=== PATIENT | male | born 1990 | race American Indian/Alaskan Native ===

== ENCOUNTER 2018-02-13 10:00 | Emergency (ER) | payer SELFPAY ==
--- NOTE | 2018-02-13 10:18 | Emergency Department Report ---
HPI - General Time Seen by Provider: 02/13/18 10:09 - HPI HPI: 27-year-old male presents to the emergency department via EMS after he was found in his car but in some other person's driveway and that person called 911. He was given 2 mg of Narcan without any response. The patient is mostly been sleeping and/or altered the entire time and therefore there has been no history obtained. He has never been before to this facility and is unknown to myself. He is currently a poor historian secondary to his current condition. ED Review of Systems ROS: Stated complaint: AMS Other details as noted in HPI Comment: Unobtainable due to pts medical conditions Physical Exam - Physical Exam Physical Exam: GENERAL: The patient is well-developed well-nourished. HENT: Normocephalic. Atraumatic. Patient has moist mucous membranes. EYES: Pupils equal reactive to light bilaterally. NECK: Supple. Trachea is midline. CHEST/LUNGS: Clear to auscultation. There is no respiratory distress noted. HEART/CARDIOVASCULAR: Regular. There is no tachycardia. There is no murmur. ABDOMEN: Abdomen is soft. Patient has normal bowel sounds. There is no abdominal distention. SKIN: Skin is warm and dry. NEURO: The patient is asleep and unresponsive. He will arouse to painful stimuli but remains nonverbal and will not open his eyes. Positive gag reflex. MUSCULOSKELETAL: There is no tenderness or deformity. There is no evidence of acute injury. ED Medical Decision Making - Lab Data Result diagrams: 02/13/18 10:31 02/13/18 10:31 - EKG Data -: EKG Interpreted by Ne EKG shows normal: sinus rhythm, axis, intervals, QRS complexes, ST-T waves Rate: normal - EKG Data When compared to previous EKG there are: previous EKG unavailable Interpretation: normal EKG - Radiology Data Radiology results: report reviewed CT of the head does not show any acute intracranial process including no ischemia, shift, mass, bleeding or skull fracture. - Medical Decision Making Patient presented at first as altered mental status after being found passed out in the front of a car. In the emergency department, the patient was asleep and unresponsive but was maintaining his airway. CT scan of the head did not show any bleed, shift, mass or any other acute process. Labs were mostly unremarkable except for a urine drug screen positive for methamphetamine and benzodiazepine. There was no evidence of opiate use and the patient did not have any previous response to the Narcan given prior to arrival. The plan was for the patient to be admitted to the hospital for his altered mental status. He was seen by the admitting hospitalist and at that time became awake, alert, and was agitated that he was at the hospital. The patient was seen ambulatory and verbal, able to answer orientation questions appropriately, and then signed out AGAINST MEDICAL ADVICE. Although the AMA was initiated and done by the admitting hospitalist, I spoke briefly with the patient regarding the fact that he had been unresponsive and confused for multiple hours but the patient did not want to give any further insight as to what had occurred, was not concerned about the fact that he had been found unresponsive, and still wanted to leave AGAINST MEDICAL ADVICE. - Differential Diagnosis substance abuse, dysrhythmia, TIA, hypoglycemia Critical Care Time: No Critical care attestation.: If time is entered above; I have spent that time in minutes in the direct care of this critically ill patient, excluding procedure time. ED Disposition Clinical Impression: Substance abuse, Unresponsive episode Disposition: DC-09 OP ADMIT IP TO THIS HOSP Is pt being admited?: Yes Condition: Stable Referrals: PRIMARY CARE, [Primary Care Provider] - 3-5 Days Time of Disposition: 15:00
[2018-02-13 10:57] LABS: INR 0.9 (0.87-1.13); Partial Thromboplastin Time 35.4 Sec. (24.2-36.6)
[2018-02-13 11:04] LABS: Basophils % (Auto) 0.8 % (0.0-1.8); Eosinophils # (Auto) 0.1 K/mm3 (0.0-0.4); Eosinophils % (Auto) 2.3 % (0.0-4.3); Hematocrit 38.4 % (35.5-45.6); Hemoglobin 13.3 gm/dl (11.8-15.2); Lymphocytes # (Auto) 1.9 K/mm3 (1.2-5.4); Lymphocytes % (Auto) 32.4 % (13.4-35.0); Mean Corpuscular HGB Conc 35 % (32-34); Mean Corpuscular Hemoglobin 32 pg (28-32); Mean Corpuscular Volume 91 fl (84-94); Monocytes # (Auto) 0.5 K/mm3 (0.0-0.8); Monocytes % (Auto) 8.7 % (0.0-7.3); Platelet Count 241 K/mm3 (140-440); Red Blood Count 4.22 M/mm3 (3.65-5.03); Red Cell Distribution Width 12.4 % (13.2-15.2)
[2018-02-13 11:06] LABS: Alanine Aminotransferase 20 units/L (7-56); Albumin 4.1 g/dL (3.9-5); BUN/Creatinine Ratio 13; Blood Urea Nitrogen 13 mg/dL (9-20); Calcium 8.9 mg/dL (8.4-10.2); Hemolysis Index 5
[2018-02-13 11:47] LABS: Bacteria,Urine 1+ /HPF (Negative); Bilirubin,Urine NEG (Negative); Blood,Urine MOD (Negative); Color,Urine Yellow (Yellow); Mucus,Urine 1+ /HPF; WBC,Urine < 1.0 /HPF (0.0-6.0)
[2018-02-13 11:49] LABS: Amphetamine Screen,Urine PRESUMPTIVE POSITIVE
[2018-02-13] MEDS ORDERED: NACL 0.9% 1000 ML 1,000 ML IV ONE (11:55)
[2018-02-13 12:11] LABS: Cannabinoid Screen,Urine PRESUMPTIVE NEGATIVE; Cocaine Screen,Urine PRESUMPTIVE NEGATIVE; Methadone Screen,Urine PRESUMPTIVE NEGATIVE; Opiate Screen,Urine PRESUMPTIVE NEGATIVE
[2018-02-13 12:25] LABS: Benzodiazepines Screen,Urine PRESUMPTIVE POSITIVE
--- NOTE | 2018-02-13 12:29 | Cat Scan Report ---
CT HEAD WITHOUT CONTRAST: HISTORY: Altered mental status. TECHNIQUE: Sequential 2.5mm CT images. COMPARISON: none. FINDINGS: Cerebral Parenchyma: Within normal limits. Cerebellum: Within normal limits. Brainstem: Within normal limits. Ventricles: Normal. Sella: Normal. Extra-axial spaces: Normal. Basal Cisterns: Normal. Intracranial Hemorrhage: None. Midline Shift: None. Calvarium: Normal. Sinuses: Normal. Mastoid Air Cells: Normal. Visualized Orbits: Normal. IMPRESSION: Cranial CT scan within normal limits.
--- NOTE | 2018-02-13 13:54 | Consultation ---
Medications and Allergies Allergies Allergy/AdvReac Type Severity Reaction Status Date / Time Unable to Assess Allergy Unverified 02/13/18 10:25 Exam - Constitutional Vitals: Temp Pulse Resp BP Pulse Ox 97.8 F 71 20 127/78 100 02/13/18 10:25 02/13/18 13:30 02/13/18 13:30 02/13/18 13:30 02/13/18 13:30 Results - Labs CBC & Chem 7: 02/13/18 10:31 02/13/18 10:31 Labs: Abnormal lab results 02/13/18 02/13/18 Range/Units 10:31 10:31 MCHC 35 H (32-34) % RDW 12.4 L (13.2-15.2) % Archer % (Auto) 8.7 H (0.0-7.3) % Total Creatine Kinase 523 H (55-170) units/L
[2018-02-13 14:24] VITALS: BP 140/105
[2018-02-13 15:32] LABS: Free T4 (Free Thyroxine) 1.16 ng/dL (0.76-1.46)
== END 2018-02-13 14:39 | disposition admitted as inpatient to this hospital (09) ==
LOC: ED 10:00
DX: R41.82 Altered mental status, unspecified (principal); F19.10 Other psychoactive substance abuse, uncomplicated
CPT/HCPCS: 36415; 70450; 80053; 80307; 81001; 82140; 82550; 84439; 84443; 85025; 85379; 85610; 85730; 93005; 93010; 96360; 99285; G0480; J7030; 80320

== ENCOUNTER 2018-09-02 18:11 | Emergency (ER) | payer OTHER ==
--- NOTE | 2018-09-02 19:12 | Emergency Department Report ---
ED Medical Clearance HPI - General Chief complaint: Medical Clearance Stated complaint: POSS DRUG INGESTION Time Seen by Provider: 09/02/18 18:41 Source: patient, police, EMS Mode of arrival: Stretcher - History of Present Illness Initial comments: 27-year-old male brought into ED by police for evaluation. Patient was arrested, a clear bag of crystals was found in patient's possession. Oficer states he put the bag on the agrcia of the car, at that point patient leaned over and officer states patient put the bag in his mouth and swallowed it. This occurred at approx 17:20. Patient denies swallowing anything. He currently denies headache, chest pain, shortness of breath, abdominal pain, nausea or vomiting. MD Complaint: medical clearance request -: This evening Reason for Medical Clearance: other (possible drug ingestion) Traumatic Symptoms: denies traumatic injury Associated Symptoms: denies: chest pain, shortness of breath, palpitations, confusion, fever/chills, headaches, nausea/vomiting Treatments Prior to Arrival: none Allergies/Adverse reactions: Allergies Allergy/AdvReac Type Severity Reaction Status Date / Time shellfish derived Allergy Hives Verified 09/02/18 19:33 ED Review of Systems ROS: Stated complaint: POSS DRUG INGESTION Other details as noted in HPI Comment: All other systems reviewed and negative Respiratory: denies: shortness of breath Cardiovascular: denies: chest pain, palpitations Gastrointestinal: denies: abdominal pain, vomiting, diarrhea Neurological: denies: headache ED Past Medical Hx - Past Medical History Additional medical history: Unknown - Surgical History Additional Surgical History: Unknown - Social History Smoking Status: Current Some Day Smoker ED Physical Exam - General Limitations: No Limitations General appearance: alert, in no apparent distress - Head Head exam: Present: atraumatic, normocephalic - Eye Eye exam: Present: normal appearance, PERRL, EOMI - ENT ENT exam: Present: mucous membranes moist - Neck Neck exam: Present: normal inspection - Respiratory Respiratory exam: Present: normal lung sounds bilaterally. Absent: respiratory distress - Cardiovascular Cardiovascular Exam: Present: normal rhythm, tachycardia - GI/Abdominal GI/Abdominal exam: Present: soft. Absent: distended, tenderness - Extremities Exam Extremities exam: Present: normal inspection - Neurological Exam Neurological exam: Present: alert, oriented X3 - Psychiatric Psychiatric exam: Present: normal affect, normal mood - Skin Skin exam: Present: warm, dry, intact, normal color ED Course Vital Signs 09/02/18 09/02/18 09/02/18 19:01 19:02 19:11 Temperature 98.8 F Pulse Rate 114 H 119 H 112 H Respiratory 15 12 9 L Rate Blood Pressure 134/80 135/72 O2 Sat by Pulse 100 100 99 Oximetry 09/02/18 09/02/18 19:22 20:00 Temperature Pulse Rate 117 H Respiratory 18 20 Rate Blood Pressure 123/66 O2 Sat by Pulse 98 99 Oximetry - Reevaluation(s) Reevaluation #1: 09/02/18 19:05 Pt denies ingesting anything. He also has no complaints. Will observe and monitor. Reevaluation #2: 09/02/18 20:39 Pt observed here in ED x 2 hrs. Vitals remain stable except for tachycardia. Continues to deny chest or abdominal pain, shortness of breath. Advised pt that I would be ordering labs and obtaining CT to r/o foreign body. Pt refuses. I have explained to pt multiple times the risk of drug ingestion, ela if bag should burst, with unknown amt of drug. Pt continues to deny that he swallowed anything. I explained that if a large amount of drug, including cocaine or meth, enters his bloodstream, it could lead to cardiac arrest and he could . Pt exhibits understanding, states he did not ingest anything. Pt is A&O x 3. Capable of decision-making. Pt is coopertive, he is not altered, mentation is normal, answers questions appropriately. Pt will sign out AMA. Officer at bedside during this conversation. ED Medical Decision Making - Differential Diagnosis drug ingestion ED Disposition Clinical Impression: Medical clearance for incarceration Disposition: DC-07 LEFT AGAINST MED ADVICE Is pt being admited?: No Condition: Stable Additional Instructions: Patient has not been medically cleared. Refusing testing. Referrals: [facility] [Other] - 3-5 Days Forms: AMA Form Time of Disposition: 20:44
[2018-09-02 20:52] VITALS: BP 123/66
== END 2018-09-02 21:00 | disposition left against medical advice (07) ==
LOC: EEVIPCON 18:11 → ED 18:11
DX: T65.91XA Toxic effect of unspecified substance, accidental (unintentional), initial encounter (principal); F17.200 Nicotine dependence, unspecified, uncomplicated; Z91.013 Allergy to seafood; X58.XXXA Exposure to other specified factors, initial encounter
CPT/HCPCS: 99283

== ENCOUNTER 2018-09-02 22:44 | Emergency (ER) | payer OTHER ==
--- NOTE | 2018-09-02 23:35 | Emergency Department Report ---
ED General Adult HPI - General Chief complaint: Medical Clearance Stated complaint: MEDICAL EVALUATION Time Seen by Provider: 09/02/18 23:22 Source: patient, EMS (ems notes not available at time of chart dictation), RN notes reviewed, old records reviewed Mode of arrival: Stretcher Limitations: No Limitations - History of Present Illness Initial comments: This is a 27-year-old gentleman. The patient is brought to the hospital today by local police department, again for medical clearance. Patient was seen earlier on today by one of my colleagues, for reported, allegedly ingestion of a bag of unknown substance. Laboratory studies, observation and CT scan were recommended to the patient, and he refused/declined, and signed out AGAINST MEDICAL ADVICE. He again presents for medical clearance. The patient has no complaints at this time. He denies headache, neck pain, chest pain, abdominal pain, shortness of breath,, systolic, suicidality. He has no complaints at this time The questionable alleged ingestion took place earlier on today, we are not sure what time Severity scale (0 -10): 0 Consistency: other Improves with: other Worsens with: other Associated Symptoms: other - Related Data Allergies Allergy/AdvReac Type Severity Reaction Status Date / Time shellfish derived Allergy Hives Verified 09/02/18 19:33 ED Review of Systems ROS: Stated complaint: MEDICAL EVALUATION Other details as noted in HPI Comment: All other systems reviewed and negative (patient has no medical complaints at this time) ED Past Medical Hx - Past Medical History Previous Medical History?: No Additional medical history: Unknown - Surgical History Past Surgical History?: No Additional Surgical History: Unknown - Social History Smoking Status: Current Every Day Smoker Substance Use Type: Methamphetamines ED Physical Exam - General Limitations: No Limitations General appearance: alert, in no apparent distress - Head Head exam: Present: atraumatic, normocephalic - Eye Eye exam: Present: normal appearance, EOMI - ENT ENT exam: Present: normal exam, normal orophraynx, mucous membranes moist, normal external ear exam - Neck Neck exam: Present: normal inspection, full ROM. Absent: tenderness, meningismus - Respiratory Respiratory exam: Present: normal lung sounds bilaterally. Absent: respiratory distress - Cardiovascular Cardiovascular Exam: Present: normal rhythm, tachycardia, normal heart sounds. Absent: systolic murmur, diastolic murmur, rubs, gallop - GI/Abdominal GI/Abdominal exam: Present: soft. Absent: distended, tenderness, guarding, rebound, rigid, pulsatile mass - Rectal Rectal exam: Present: deferred - Extremities Exam Extremities exam: Present: normal inspection, full ROM, other (2+ pulses noted in the bilateral upper, lower extremities. Compartments soft. No long bony tenderness. The pelvis is stable.). Absent: pedal edema, joint swelling, calf tenderness - Back Exam Back exam: Present: normal inspection, full ROM. Absent: tenderness, CVA tenderness (R), paraspinal tenderness - Neurological Exam Neurological exam: Present: alert, oriented X3, other (Extraocular movements intact. Tongue midline. No facial droop. Facial sensation intact to light touch in the V1, V2, V3 distribution bilaterally. 5 and 5 strength in 4 extremities.. Sensation is intact to light touch in 4 extremities.). Absent: motor sensory deficit - Psychiatric Psychiatric exam: Present: normal affect, normal mood - Skin Skin exam: Present: warm, dry, intact, normal color. Absent: rash ED Course Vital Signs 09/02/18 22:58 Temperature 98.3 F Pulse Rate 125 H Respiratory 21 Rate Blood Pressure 158/71 Blood Pressure 158/71 [Left] O2 Sat by Pulse 97 Oximetry ED Medical Decision Making - Lab Data Vital Signs 09/02/18 22:58 Temperature 98.3 F Pulse Rate 125 H Respiratory 21 Rate Blood Pressure 158/71 Blood Pressure 158/71 [Left] O2 Sat by Pulse 97 Oximetry - Medical Decision Making Differential diagnosis, including not limited to: Overdose, stimulant ingestion, medical clearance for incarceration Assessment and plan: 27-year-old male with no complaints brought to the emergency room for medical clearance. I have reiterated my colleague's recommendation for laboratory studies, CT scan of the abdomen and pelvis, and further medical evaluation as needed to exclude potentially lethal ingestion. The patient is refusing and declining all of these aforementioned. The patient's is going to sign out AGAINST MEDICAL ADVICE at this time. Extensive discussion had with the patient, and the risks of leaving without a complete medical evaluation, including , disability, paralysis, loss of quality of life were discussed with the patient, multiple times, and the patient verbalized understanding in his own words. Patient was able to describe potential risks in his own words. The patient is currently alert and oriented 3, free from distracting injury, and exhibits decision-making capacity. Conversation witnessed by ER supervisor [employer]ing [employer] The patient was counseled that he may return to the emergency room right away if and when he changes his mind. Critical care attestation.: If time is entered above; I have spent that time in minutes in the direct care of this critically ill patient, excluding procedure time. ED Disposition Clinical Impression: Medical clearance for incarceration Disposition: DC/[place]-06 HOME UNDER HOME HLTH Is pt being admited?: No Does the pt Need Aspirin: No Condition: Undetermined Additional Instructions: Please note that the patient is not medically cleared for incarceration. The patient refused the recommended medical evaluation for clearance. As we discussed, you have left the hospital/emergency room AGAINST MEDICAL ADVICE. By leaving, you risked , disability, paralysis, permanent loss of quality of life. The ER is open 24 hours a day, 7 days a week. It never closes. Please return to the emergency room right away if and when you change your mind. If you decide not to return to the emergency room, please follow-up with the listed physician referrals as soon as possible. Referrals: [facility] [Provider Group] - 3-5 Days [facility] [Provider Group] - 3-5 Days
[2018-09-02 23:55] VITALS: BP 153/84
== END 2018-09-02 23:52 | disposition home or self-care (01) ==
LOC: EEVIPCON 22:44 → ED 22:44
DX: T18.2XXA Foreign body in stomach, initial encounter (principal); F17.200 Nicotine dependence, unspecified, uncomplicated; F15.10 Other stimulant abuse, uncomplicated; Z91.013 Allergy to seafood; X58.XXXA Exposure to other specified factors, initial encounter